=== PATIENT | female | born 1975 ===

== ENCOUNTER 2018-06-01 05:50 | Observation (INO) | payer OTHER ==
[~2018-06-01 05:50] MED LIST: LIDOCAINE 1% 2 ML INJ ID PRN; LR 1,000 ML IV ONE; ceFAZolin 2 GM/DEXTROSE 100 ML IV ONE
[2018-06-01] MEDS ORDERED: MIDAZOLAM 2 MG/2 ML VIAL IVP ONE (06:50)
--- NOTE | 2018-06-01 06:51 | PDANEPAE ---
ANE History of Present Illness here for thyroidectomy partial ANE Past Medical History - Cardiovascular History Hx Hypertension: No Hx Arrhythmias: No Hx Chest Pain: No Hx Coronary Artery / Peripheral Vascular Disease: No Hx CHF / Valvular Disease: No Hx Palpitations: No - Pulmonary History Hx COPD: No Hx Asthma/Reactive Airway Disease: No Hx Recent Upper Respiratory Infection: No Hx Oxygen in Use at Home: No Hx Sleep Apnea: No Sleep Apnea Screening Result - Last Documented: Negative - Neurologic History Hx Cerebrovascular Accident: No Hx Seizures: No Hx Dementia: No - Endocrine History Hx Diabetes: No Endocrine History Comment: current mass on thyroid - Renal History Hx Renal Disorders: No - Liver History Hx Hepatic Disorders: No - Neurological & Psychiatric Hx Hx Neurological and Psychiatric Disorders: Yes Neurological / Psychiatric History Comment: hx of anxiety - Cancer History Hx Cancer: No - Congenital Disorder History Hx Congenital Disorders: No - GI History Hx Gastrointestinal Disorders: Yes Gastrointestinal History Comment: constipation - Other Health History Other Health History: none - Chronic Pain History Chronic Pain: No - Surgical History Prior Surgeries: lumpectomy 2007. breast augmentation 08/2017 ANE Review of Systems Review of systems is: negative Review of Systems: - Exercise capacity Exercise capacity: >=4 METS METS (RN): 4 METS ANE Patient History - Allergies Allergies/Adverse Reactions: No Known Allergies Allergy (Verified 05/16/18 11:27) - Home Medications Home medications: home medication list seen and reviewed Home Medications: NK [No Known Home Meds] 05/09/18 [Last Taken Unknown] - NPO status NPO Status: no food or drink >8 hours NPO Since - Liquids (Date): 06/01/18 NPO Since - Liquids (Time): 04:00 NPO Since - Solids (Date): 05/31/18 NPO Since - Solids (Time): 19:00 - Anes Hx Anes Hx: no prior problems - Smoking Hx Smoking Status: Light smoker - Family Anes Hx Family Hx Anesthesia Complications: none ANE Labs/Vital Signs - Vital Signs Blood Pressure: 117/72 Heart Rate: 61 Respiratory Rate: 18 O2 Sat (%): 99 Height: 165.1 cm Weight: 60.328 kg ANE Physical Exam - Airway Neck exam: FROM Mallampati Score: Class 1 - Pulmonary Pulmonary: no respiratory distress - Cardiovascular Cardiovascular: regular rate and rhythym - ASA Status ASA Status: II ANE Anesthesia Plan Anesthesia Plan: general endotracheal anesthesia
[2018-06-01] MEDS ORDERED: ACETAMINOPHEN 500 MG TAB PO PRN (06:54)
[2018-06-01] MEDS ORDERED: HYDROCODONE/APAP 5/325 TAB PO PRN (06:54)
[2018-06-01] MEDS ORDERED: NS 500 ML IV PRN (06:54)
[2018-06-01] MEDS ORDERED: ALBUTEROL 3 ML DEYVIAL IH PRN (06:54)
[2018-06-01] MEDS ORDERED: oxyCODONE IR 5 MG TAB PO PRN (06:54)
[2018-06-01] MEDS ORDERED: DEXAMETHASONE 4 MG/ML VIAL IVP PRN (06:54)
[2018-06-01] MEDS ORDERED: NALOXONE HCL 0.4 MG/ML INJ IVP PRN ×2 (06:54→10:22)
[2018-06-01] MEDS ORDERED: ONDANSETRON 4 MG/2 ML VIAL IVP PRN ×2 (06:54→09:56)
[2018-06-01] MEDS ORDERED: PROMETHAZINE HCL 25 MG/ML INJ IVP PRN (06:54)
[2018-06-01] MEDS ORDERED: LIDO/EPI 1% **Not for Epidural 20 ML MDV ONE (06:58)
[2018-06-01] MEDS ORDERED: BACITRACIN ZINC 0.5 OZ OINTTUBE TP ONE (06:58)
[2018-06-01] MEDS ORDERED: fentaNYL 100 MCG/2 ML INJ ONE ×2 (07:02→09:42)
[2018-06-01] MEDS ORDERED: PROPOFOL/EMULSION 500 MG/50 ML BOTTLE IV ONE (07:04)
[2018-06-01] MEDS: fentaNYL 100 MCG/2 ML INJ IVP PRN ×2 (09:46→09:57)
[2018-06-01] MEDS ORDERED: ACETAMINOPHEN 325 MG TAB PO PRN (09:56)
[2018-06-01] MEDS ORDERED: HYDROmorphONE/DILAUDID 2 MG/ML INJ ONE (10:05)
[2018-06-01] MEDS: HYDROmorphONE/DILAUDID 2 MG/ML INJ IVP PRN ×3 (10:07→11:21)
[2018-06-01] MEDS ORDERED: NS 1,000 ML IV SCH (10:15)
[2018-06-01] MEDS ORDERED: DIAZEPAM 5 MG/ML 1 ML SYR IVP PRN (10:22)
[2018-06-01] MEDS ORDERED: DIAZEPAM 5 MG/ML 1 ML SYR ONE (10:25)
--- NOTE | 2018-06-01 10:33 | PDHPUP ---
History & Physical Update H&P update statement: This history and physical update is based on an assessment of the patient which was completed after admission or registration (within 24 hours), but prior to the surgery/procedure. H&P update: H&P reviewed & patient examined
--- NOTE | 2018-06-01 10:47 | POSTANESTH ---
Post Anesthetic Evaluation Cardiovascular Status: Normal, Stable Respiratory Status: Normal, Stable Level of Consciousness/Mental Status: Can Participate in Eval Pain Control: Inadeq, Add Tx Required Nausea/Vomiting Control: Adequate, Prn Tx Ordered Complications Possibly Related to Anesthesia: None Noted
[2018-06-01] MEDS ORDERED: OXYCODONE/APAP 5/325 TAB ONE (11:00)
[2018-06-01] MEDS: OXYCODONE/APAP 5/325 TAB PO PRN ×3 (11:03→22:18)
[2018-06-01] MEDS: PROMETHAZINE HCL 25 MG/ML INJ IVP PRN (13:36)
--- NOTE | 2018-06-01 14:22 | GOP ---
DATE OF OPERATION: 06/01/2018 SURGEON: Aleksandr Kurtz MD [employer] DIRECTOR: Aurelio Wilcox MD. ANESTHESIA: General. PREOPERATIVE DIAGNOSIS: Left thyroid mass. POSTOPERATIVE DIAGNOSIS: Left thyroid mass. PROCEDURE PERFORMED: Left hemithyroidectomy. FINDINGS: SPECIMENS: For pathology are from the left hemithyroid gland removal. ESTIMATED BLOOD LOSS: Less than 50 mL. INDICATIONS: Left thyroid mass. DESCRIPTION OF PROCEDURE: Patient is a 42-year-old female brought to the operating room where genera l anesthesia was induced and endotracheal intubation was performed. The neck was placed in extension , and a horizontal low-lying neck crease noted and marked out, and then infiltrated with 1% lidocaine with epinephrine at 1:100,000 strength in a subcutaneous fashion; roughly 7 mL was used. The neck w as then prepped and draped in a sterile fashion. Procedure then begun by making an incision using a 15-blade in the planned low-neck horizontal crease down to the subplatysmal plane. Subplatysmal flap s were then raised superiorly and inferiorly to expose the midline strap musculature to the neck. Th e flaps were retracted using 2-0 silk sutures in all 4 quadrants. The midline neck was identified, a nd then divided down to the thyroid fascia. The fascia and strap musculature was starting to be diss ected off the left thyroid gland in a blunt fashion using dissector and electrocautery. The gland wa s retracted medially, and the superior pole vessels were identified. They were clamped, divided, and ligated using 2-0 silk suture. Once this was done, the gland was further retracted medially and the lateral thyroid vein was identified after further dissection, and this was also clamped, divided, an d ligated. The gland was then rolled anteromedially, and dissection underneath the gland revealed the recurrent laryngeal nerve in its normal course. The nerve was traced superiorly in the gland and fascia overly ing the gland dissected free of the nerve. During the dissection of the upper pole vessels, the supe rior parathyroid was noted and dissected free of the thyroid gland. Once the gland was freed from th e path of the recurrent laryngeal nerve, the dissection continued inferiorly to release the fascia of f the gland, to allow the gland to be further mobilized. The inferior pole vessels were identified a nd clamped, divided, and ligated during this process, and the gland with the large left thyroid nodul e was rotated medially and dissected free of the anterior tracheal wall. The isthmus was then clampe d, divided using a 15-blade, and ligated using 2-0 Vicryl suture in a running stitch fashion. The gl and was then sent for frozen pathology. While awaiting for the frozen pathology results, the recurrent laryngeal nerve was stimulated using a Helger stimulator, with good muscle tone and contraction of the musculature in the postarytenoid reg ion noted on palpation. The wound was copiously irrigated, and any bleeding controlled with bipolar electrocautery. The pathology report on frozen section was follicular nodule, which was favored and thought to be benign by the pathologist. At this point in the procedure, the surgical wound was clos ed in multiple layers using 4-0 Monocryl and 5-0 nylon suture over a 1/4-inch Chinedu drain exiting t he midline of the wound. The drain was sewn in place. The patient then had a Bacitracin, Telfa, flu ff, and Marlin dressing placed, and she was awakened and extubated uneventfully and brought to the rec overy room in stable condition where she was expected to do well postoperatively. The patient tolera mony the procedure well. HISTORY: A 42-year-old woman who has a growing left thyroid mass. Risks, benefits, indications, opt ions, possible complications of this procedure were discussed at length with the patient. Prior to s igning informed consent, she was given a chance to have her questions answered. /[id number]/MODL
--- NOTE | 2018-06-01 17:16 | SOAPPROG ---
SOAP Progress Note Assessment/Plan: Assessment: Pt s/p hemithyroidectomy. Doing well. Voice strong. Pain controlled, mild sore throat. Plan to d/c tomorrow. Plan: 06/01/18 17:14 Objective: Vital Signs Temp Pulse Resp BP Pulse Ox 36.8 C 50 L 16 117/82 H 97 06/01/18 15:00 06/01/18 15:00 06/01/18 15:00 06/01/18 15:00 06/01/18 15:00 05/31/18 06/01/18 06/02/18 05:59 05:59 05:59 Intake Total 1500 Output Total 10 Balance 1490 ICD10 Worksheet Patient Problems: Problems Problem Status Onset Thyroid mass Acute - ICD10 Problem Qualifiers (1) Thyroid mass
[2018-06-02] MEDS: OXYCODONE/APAP 5/325 TAB PO PRN ×2 (02:51→08:57)
[2018-06-02 08:16] VITALS: BP 127/76
--- NOTE | 2018-06-02 10:03 | PDDCSUM ---
Discharge Summary Discharge Summary: Patient POD #1 s/p hemithyroidectomy by Dr. Kurtz. Doing well. Hines controlled. Voice strong Drain removed. Dressing replaced. incision c/d/i Reviewed post op care Okay for d/c follow up in clinic next week
[2018-06-02] MEDS: PROMETHAZINE HCL 25 MG/ML INJ IVP PRN (10:26)
--- NOTE | 2018-06-02 11:50 | ASDISCHSUM ---
Discharge Information Plan Status:Home with No Needs Medically Cleared to Leave:06/01/2018 Discharge Date:06/02/2018 11:41 AM CM D/C Disposition:Home, Routine, Self-Care ADT D/C Disposition:Home, Routine, Self-Care Projected Discharge Date:06/02/2018 11:41 AM Transportation at D/C:Family Discharge Delay Reason: Follow-Up Date:06/02/2018 11:41 AM Discharge Slot: Final Diagnosis:thyroidectomy Placement Information Patient Contact Information Contact Name:CLAUDINE Relationship:Vasquez Address: Home Phone: City: [facility] Phone: [facility]/[employer] Code: Email: Financial Information Financial Class:HMO and PPO Plans Primary Plan Desc:[employer]ACOB ROJAS Primary Plan Number:[id number] Secondary Plan Desc: Secondary Plan Number: Assessment Information Case Management Discharge Plan Note Case Management Discharge Discharge Order Complete? Answers: Yes Patient to Obtain Answers: via Family Medications Transportation Arranged Answers: Family/Friends Family Notified Answers: Yes Notes: pt to call Discharge Comments Notes: Spoke with pt in the room and with pt's RN. Pt to discharge home independently and is comfortable with this plan. No therapies ordered. Pt lives independently with . No CM need noted at this time. Date Signed: 06/02/2018 11:48 AM Electronically Signed By:Talia Perera LACE LACE Length of stay for Answers: 1 day current admission Acuity / Level of Answers: No Care: Did the patient have an inpatient admission? Comorbidities - select Answers: Other Notes: thyroid mass all that apply # of Emergency department Answers: 0 visits in the last 6 months Score: 2 Date Signed: 06/02/2018 11:49 AM Electronically Signed By:Talia Perera Intervention Information
== END 2018-06-02 11:41 | disposition home or self-care (01) ==
LOC: F3N 05:50 → F3E 11:43
PROVIDERS: ADMIT Otolaryngology; ATTEND Otolaryngology
PROC: 0GTG0ZZ Resection of Left Thyroid Gland Lobe, Open Approach (ICD-10-PCS; principal; 2018-06-01 07:15)
DX: D34 Benign neoplasm of thyroid gland (principal); F17.200 Nicotine dependence, unspecified, uncomplicated; Z23 Encounter for immunization
CPT/HCPCS: 60220; G0378; J0690; J1170; J2250; J2270; J2550; J2704; J3010; J3360